=== PATIENT | female | born 1995 | race Asian ===

== ENCOUNTER 2017-05-02 01:55 | Inpatient (IN) | payer OTHER ==
[2017-05-02 02:55] VITALS: BMI 37.8
[2017-05-02 03:11] LABS: BASOPHIL 0.9 % (0-2.0); MCH 26.9 pg (25.7-33.7); MCHC 33.4 g/dl (32.0-36.0); MEAN CELL VOLUME 80.6 fl (80-96); NEUTROPHILS 70.6 % (42.8-82.8); PLATELET COUNT 227 K/MM3 (134-434); RDW 14.4 % (11.6-15.6); WHITE BLOOD COUNT 12.5 K/mm3 (4.0-10.0)
[2017-05-02 03:30] LABS: INR 1.04 (0.82-1.09); PROTHROMBIN TIME (PATIENT) 11.4 SEC (9.98-11.88)
[2017-05-02 03:33] LABS: ANION GAP 10 (8-16); CALCIUM 8.8 mg/dL (8.5-10.1); CO2 25 mmol/L (21-32); CREATININE 0.4 mg/dL (0.55-1.02); GLUCOSE,RANDOM 87 mg/dL (74-106)
[2017-05-02 04:05] LABS: HIV 1 & 2 AB NEGATIVE; HIV 1 AGp24 NEGATIVE
[2017-05-02] MEDS ORDERED: DEXTROSE 5%-LACTATED RINGERS 1,000 ML IV SCH (06:30)
--- NOTE | 2017-05-02 06:33 | HP ---
Past Medical History - Admission Chief Complaint: Postdates History of Present Illness: 22 yo @ 40.3 weeks gestation, admitted for IOL due to Post term . EDC 04/29/2017 She c/o mild contractions pain but no vaginal bleeding nor ROM. History Source: Patient Limitations to Obtaining History: No Limitations - Past Medical History ...: 3 ...Para: 2 ...Term: 2 ...: 0 ...Spon : 0 ...Induced : 0 ...Multiple Gestation: 0 ...LMP: 07/23/16 ... Weeks Gestation by Dates: 40.3 ...EDC by Dates: 04/29/17 ...EDC by Sono: 04/29/17 - Past Surgical History Past Surgical History: Yes: None Hx Myomectomy: No Hx Transabdominal Cerclage: No - Smoking History Smoking history: Never smoked Have you smoked in the past 12 months: No - Alcohol/Substance Use Hx Alcohol Use: No History of Substance Use: reports: None - Social History Usual Living Arrangement: Yes: With Spouse History of Recent Travel: No Home Medications - Allergies Allergies/Adverse Reactions: Allergies Allergy/AdvReac Type Severity Reaction Status Date / Time No Known Drug Allergies Allergy Verified 05/28/13 05:13 - Home Medications Home Medications: Ambulatory Orders Ibuprofen [Motrin -] 600 mg PO TID PRN #60 tablet 05/29/13 Acetaminophen [Tylenol .Regular Strength -] 650 mg PO Q4H PRN #0 tablet Iron 1 tab PO DAILY 05/02/17 Vitamins (Sjr) - 1 tab PO DAILY 05/02/17 Family Disease History - Family Disease History Family History: Unremarkable Review of Systems - Review of Systems Constitutional: reports: No Symptoms HENT: reports: No Symptoms Neck: reports: No Symptoms Cardiovascular: reports: No Symptoms Respiratory: reports: No Symptoms Gastrointestinal: reports: No Symptoms Genitourinary: reports: No Symptoms Breasts: reports: No Symptoms Reported Integumentary: reports: No Symptoms Neurological: reports: No Symptoms Endocrine: reports: No Symptoms Hematology/Lymphatic: reports: No Symptoms Psychiatric: reports: No Symptoms Pain Intensity: 4 Physical Exam - Maternity Vital Signs: Vital Signs Temperature 98.8 F 05/02/17 01:55 Pulse Rate 99 H 05/02/17 01:55 Respiratory Rate 18 05/02/17 01:55 Blood Pressure 104/67 05/02/17 01:55 O2 Sat by Pulse Oximetry (%) Constitutional: Yes: Well Nourished Eyes: Yes: Conjunctiva Clear HENT: Yes: WNL Cardiovascular: Yes: Regular Rate and Rhythm Lungs: Clear to auscultation - Abdominal Exam/OB Number of Fetuses: Single Presentation: Vertex - Vaginal Exam/OB Dilatation (cm): 5 Effacement (%): 90 Amniotic Membrane Status: Intact Station: -2 - Physical Exam Musculoskeletal: Yes: WNL ...Motor Strength: WNL Psychiatric: Yes: Alert, Oriented - Labs Lab Results: CBC, BMP 05/02/17 02:45 05/02/17 02:45 Problem List - Problems (1) Post term Code(s): O48.0 - POST-TERM Assessment/Plan Post term Early labor Admit to L&D Anticipate
[2017-05-02] MEDS ORDERED: BUTORPHANOL TARTRATE 1 MG/ML VIAL IVPUSH ONE (09:30)
[2017-05-02] MEDS: PROMETHAZINE HCL 25 MG/1 ML VIAL IVPUSH SCH (09:40)
[2017-05-02] MEDS ORDERED: BENZOCAINE 20% 57 GM BOTTLE TP PRN (11:13)
[2017-05-02] MEDS ORDERED: WITCH HAZEL 50% (TUCKS) 40 PAD/JAR PAD TP PRN (11:13)
[2017-05-02] MEDS ORDERED: BENZOCAINE 28 GM HEMORRHOIDAL OINTMENT TP PRN (11:13)
[2017-05-02] MEDS ORDERED: METHYLERGONOVINE MALEATE 0.2 MG/1 ML AMP IM PRN (11:13)
[2017-05-02] MEDS ORDERED: BISACODYL 10 MG SUPP.RECT RC PRN (11:13)
[2017-05-02] MEDS ORDERED: D5W-LR W/ 20 UNITS OXYTOCIN 1,000 ML IV SCH (11:15)
--- NOTE | 2017-05-02 11:16 | PN ---
Delivery - Delivery Vaginal Delivery: Spontaneous Type of Anesthesia: Local Episiotomy/Laceration: None EBL (cc): 250 Delivery, Single - Feeding Plan Initial Plan: Elected not to breastfeed exclusively throughout hospitalization Remarks - Remarks Remarks: Normal spontaneous vaginal delivery of a live girl over intact perineum. Nose / Oropharynx suctioned @ perineum. Cord clamped and cut. Placenta expelled spontaneously intact. Mother in stable condition
[2017-05-02] MEDS: FERROUS SO4 325 MG TABLET (FP) PO SCH ×2 (13:23→17:53)
[2017-05-02] MEDS: ACETAMINOPHEN 325 MG TABLET (FP) PO PRN ×2 (13:23→17:53)
[2017-05-02] MEDS: IBUPROFEN 600 MG TABLET (FP) PO PRN ×2 (13:24→17:53)
[2017-05-03 08:50] LABS: BASOPHIL 0.6 % (0-2.0); MCHC 32.1 g/dl (32.0-36.0); MEAN CELL VOLUME 81.1 fl (80-96); MEAN PLT VOLUME 8.3 fl (7.5-11.1); NEUTROPHILS 71.7 % (42.8-82.8); PLATELET COUNT 206 K/MM3 (134-434); RDW 14.6 % (11.6-15.6); WHITE BLOOD COUNT 12.1 K/mm3 (4.0-10.0)
[2017-05-03] MEDS: PRENATAL VITAMINS W/ FOLIC ACID TABLET (FP) PO SCH (09:53)
[2017-05-03] MEDS: FERROUS SO4 325 MG TABLET (FP) PO SCH ×3 (09:53→19:37)
--- NOTE | 2017-05-03 12:27 | PN ---
Post Progress Note - Subjective Subjective: 22 yo Para 3 status post vaginal delivery, seen and evaluated, doing well. No complaints. Post Day: 1 Type of Delivery: Vital Signs: Vital Signs Temperature 97.9 F 05/03/17 09:00 Pulse Rate 91 H 05/03/17 09:00 Respiratory Rate 20 05/03/17 09:00 Blood Pressure 93/50 05/03/17 09:00 O2 Sat by Pulse Oximetry (%) 100 05/02/17 12:43 Breast Exam: Yes: Soft Uterus: Yes: Fundus Firm Abdomen/GI: Yes: Abdomen soft, Tolerating PO Lochia: Yes: Rubra Lochia, amount: Moderate Extremities: Yes: Calves non-tender Perineum: Yes: Intact Activity: Ambulating - Labs Labs: CBC WBC 12.1 K/mm3 (4.0-10.0) H 05/03/17 07:30 RBC 3.92 M/mm3 (3.60-5.2) 05/03/17 07:30 Hgb 10.2 GM/dL (10.7-15.3) L 05/03/17 07:30 Hct 31.8 % (32.4-45.2) L 05/03/17 07:30 MCV 81.1 fl (80-96) 05/03/17 07:30 MCH 26.0 pg (25.7-33.7) 05/03/17 07:30 MCHC 32.1 g/dl (32.0-36.0) 05/03/17 07:30 RDW 14.6 % (11.6-15.6) 05/03/17 07:30 Plt Count 206 K/MM3 (134-434) 05/03/17 07:30 MPV 8.3 fl (7.5-11.1) 05/03/17 07:30 Neutrophils % 71.7 % (42.8-82.8) 05/03/17 07:30 Lymphocytes % 21.1 % (8-40) 05/03/17 07:30 Monocytes % 4.6 % (3.8-10.2) 05/03/17 07:30 Eosinophils % 2.0 % (0-4.5) 05/03/17 07:30 Basophils % 0.6 % (0-2.0) 05/03/17 07:30 Problem List - Problems (1) Post term Code(s): O48.0 - POST-TERM Assessment/Plan Status post normal vaginal delivery Stable Continue routine care
[2017-05-03] MEDS: IBUPROFEN 600 MG TABLET (FP) PO PRN (19:40)
[2017-05-03] MEDS: ACETAMINOPHEN 325 MG TABLET (FP) PO PRN (19:40)
[2017-05-03] MEDS: PROMETHAZINE HCL 25 MG/1 ML VIAL IVPUSH SCH (19:56)
[2017-05-03] MEDS ORDERED: SENNOSIDES/DOCUSATE COMBO (SENNA PLUS) TABLET (UD) PO PRN (22:00)
[2017-05-04] MEDS: IBUPROFEN 600 MG TABLET (FP) PO PRN (07:59)
[2017-05-04] MEDS: ACETAMINOPHEN 325 MG TABLET (FP) PO PRN (07:59)
[2017-05-04] MEDS: FERROUS SO4 325 MG TABLET (FP) PO SCH ×2 (07:59→11:42)
[2017-05-04 08:16] VITALS: BP 99/57; PULSE 95; TEMP 98.2
[2017-05-04] MEDS: PRENATAL VITAMINS W/ FOLIC ACID TABLET (FP) PO SCH (09:01)
--- NOTE | 2017-05-04 10:17 | DS ---
Physical Exam-CUSTOMER ACCOUNT EXECUTIVE Vital Signs: Vital Signs Temperature 98.2 F 05/04/17 08:14 Pulse Rate 95 H 05/04/17 08:14 Respiratory Rate 20 05/04/17 08:14 Blood Pressure 99/57 05/04/17 08:14 O2 Sat by Pulse Oximetry (%) 100 05/02/17 12:43 Constitutional: Yes: Well Nourished Eyes: Yes: Conjunctiva Clear HENT: Yes: Atraumatic Neck: Yes: Supple Cardiovascular: Yes: Regular Rate and Rhythm Respiratory: Yes: Regular Gastrointestinal: Yes: Normal Bowel Sounds ...Rectal Exam: Yes: WNL Renal/: Yes: WNL Pelvis: Yes: WNL External Genitalia: Yes: Normal Vaginal Exam: Yes: Normal Cervix: Yes: Normal Uterus: Yes: Firm ....Post : Yes: Uterus firm, Moderate lochia serosa Breast(s): Yes: WNL Musculoskeletal: Yes: WNL Extremities: Yes: WNL Integumentary: Yes: WNL Neurological: Yes: Alert, Oriented ...Motor Strength: WNL Psychiatric: Yes: Alert, Oriented Labs: CBC, BMP 05/03/17 07:30 05/02/17 02:45 Delivery - Delivery Vaginal Delivery: Spontaneous Type of Anesthesia: None Episiotomy/Laceration: None EBL (cc): 250 Delivery, Single - Stages of Labor Date 1st Stage Initiatied: 05/02/17 Time 1st Stage Initiated: 00:00 Date 2nd Stage Initiated: 05/02/17 Time 2nd Stage Initiated: 11:00 Date of Delivery: 05/02/17 Time of Delivery: 11:05 Time Placenta Delivered: 11:06 - 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 Gender: Female Weight: 6 lb 13 oz Position: Left, OA Total Hours ROM (Hrs/Mins): 1/25 - 1 Minute Total Score: 9 5 Minutes Total Score: 9 - Feeding Plan Initial Plan: Elected not to breastfeed exclusively throughout hospitalization Discharge Summary Reason For Visit: LABOR Current Active Problems Post term (Acute) Status post normal vaginal delivery (Acute) Procedures: Principal: Normal spontaneous vaginal delivery Hospital Course: Routine care Condition: Good - Instructions Diet, Activity, Other Instructions: Regular diet No douching, no sexual intercourse x 6 weeks F/U with in 6 weeks call for appointment. Referrals: Cassidy Quezada MD [Staff Physician] - Disposition: HOME - Home Medications Comprehensive Discharge Medication List: Ambulatory Orders Ibuprofen [Motrin -] 600 mg PO TID PRN #60 tablet 05/29/13 Acetaminophen [Tylenol .Regular Strength -] 650 mg PO Q4H PRN #0 tablet Iron 1 tab PO DAILY 05/02/17 Vitamins (Sjr) - 1 tab PO DAILY 05/02/17
== END 2017-05-04 12:40 | disposition home or self-care (01) | DRG 560 ==
LOC: JLDR 01:55 → J3W 13:00
PROVIDERS: ADMIT Obstetrics & Gynecology; ATTEND Obstetrics & Gynecology
PROC: 10E0XZZ Delivery of Products of Conception, External Approach (ICD-10-PCS; principal; 2017-05-02)
PROC: 0W8NXZZ Division of Female Perineum, External Approach (ICD-10-PCS; 2017-05-02)
PROC: 4A1HXCZ Monitoring of Products of Conception, Cardiac Rate, External Approach (ICD-10-PCS; 2017-05-02)
PROC: 3E0P7GC Introduction of Other Therapeutic Substance into Female Reproductive, Via Natural or Artificial Opening (ICD-10-PCS; 2017-05-02)
DX: O48.0 Post-term pregnancy (principal); Z3A.40 40 weeks gestation of pregnancy; Z37.0 Single live birth
CPT/HCPCS: 36415; 59409; 80048; 85025; 85610; 85730; 86593; 86850; 86900; 86901; 87389

== ENCOUNTER 2019-06-28 09:05 | Emergency (ER) | payer OTHER ==
[2019-06-28 09:19] VITALS: BMI 33.5
[2019-06-28 10:21] LABS: BASO % 0.5 % (0-2.0); EOS % 0.8 % (0-4.5); HEMATOCRIT 35.6 % (32.4-45.2); HEMOGLOBIN 11.6 GM/dL (10.7-15.3); LYMPH % 23.2 % (8-40); MCH 25.7 pg (25.7-33.7); MCHC 32.7 g/dl (32.0-36.0); MEAN CELL VOLUME 78.8 fl (80-96); MEAN PLT VOLUME 8.4 fl (7.5-11.1); MONO % 5.6 % (3.8-10.2); NEUT % 69.9 % (42.8-82.8); PLATELET COUNT 260 K/MM3 (134-434); RBC 4.52 M/mm3 (3.60-5.2); RDW 15.5 % (11.6-15.6); WHITE BLOOD COUNT 8.1 K/mm3 (4.0-10.0)
[2019-06-28 10:23] LABS: URINE APPEARANCE CLEAR; URINE BILIRUBIN NEGATIVE (NEGATIVE); URINE COLOR YELLOW; URINE GLUCOSE (UA) NEGATIVE (NEGATIVE); URINE KETONE 2+ (NEGATIVE); URINE LEUK ESTERASE NEGATIVE (NEGATIVE); URINE NITRITE NEGATIVE (NEGATIVE); URINE PROTEIN NEGATIVE (NEGATIVE); URINE UROBILINOGEN 0.2 mg/dL (0.2-1.0)
--- NOTE | 2019-06-28 10:43 | PDOC ---
History of Present Illness - General Chief Complaint: Pain, Acute Stated Complaint: 9wks preg/cough Time Seen by Provider: 06/28/19 09:39 History Source: Patient Exam Limitations: Clinical Condition - History of Present Illness Initial Comments: 06/28/19 10:38 Patient LMP April 17 presented with complaint of 3 episodes of blood- tinged vomit since yesterday. Patient reported intermittent cough. Patient report doing home test a month ago and found to be but has not followed up with OB. Denies vaginal bleeding, urinary frequency, burning with urination, fever, chills, shortness of breath, dizziness. He denies denies recent travel or sick contact. Patient reported history of uncomplicated 3 vaginal deliveries. Patient did not take anything for symptoms. Denies active bleeding or discharge Is this a multiple visit Asthma Patient?: No Timing/Duration: other (2 days) Past History - Past Medical History Allergies/Adverse Reactions: Allergies Allergy/AdvReac Type Severity Reaction Status Date / Time No Known Drug Allergies Allergy Verified 05/28/13 05:13 Home Medications: Ambulatory Orders Ibuprofen [Motrin -] 600 mg PO TID PRN #60 tablet 05/29/13 Acetaminophen [Tylenol .Regular Strength -] 650 mg PO Q4H PRN #0 tablet Iron 1 tab PO DAILY 05/02/17 Vitamins (Sjr) - 1 tab PO DAILY 05/02/17 Mag Hydrox/Aluminum Hyd/Simeth [Maalox Advanced Suspension] 30 ml PO Q8H PRN # 120 ml 06/28/19 Ondansetron [Zofran *Odt*] 4 mg SL Q8H PRN #12 od.tablet 06/28/19 Pantoprazole Sodium [Protonix] 40 mg PO DAILY #7 tablet. 06/28/19 Asthma: No Cancer: No Cardiac Disorders: No COPD: No Diabetes: No HTN: No Seizures: No Thyroid Disease: No - Reproductive History Is Patient Now?: Yes (#): 4 Para: 3 - Immunization History Immunization Up to Date: No - Psycho Social/Smoking Cessation Hx Smoking History: Never smoked Have you smoked in the past 12 months: No Information on smoking cessation initiated: No Hx Alcohol Use: No Drug/Substance Use Hx: No Hx Substance Use Treatment: No Review of Systems - Review of Systems Able to Perform ROS?: Yes Is the patient limited [place]an proficient: No Constitutional: No: Chills, Fever, Malaise, Weakness HEENTM: No: Symptoms Reported, See HPI, Eye Pain, Blurred Vision, Tearing, Recent change in vision, Double Vision, Cataracts, Ear Pain, Ocular Prothesis, Ear Discharge, Nose Pain, Nose Congestion, Tinnitus, Nose Bleeding, Hearing Loss , Throat Pain, Throat Swelling, Mouth Pain, Dental Problems, Difficulty Swallowing, Mouth Swelling, Other Respiratory: Yes: Symptoms reported, See HPI, Cough (intermittent cough). No: Orthopnea, Shortness of Breath, SOB with Exertion, SOB at Rest, Stridor, Wheezing, Productive cough, Hemoptysis, Other Cardiac (ROS): No: Symptoms Reported, See HPI, Chest Pain, Edema, Irregular Heart Rate, Lightheadedness, Palpitations, Syncope, Chest Tightness, Other ABD/GI: Yes: Symptoms Reported, See HPI, Nausea, Vomiting (3 episodes of vomiting). No: Abdominal Distended, Abd. Pain w/ defecation, Blood Streaked Bowels, Constipated, Diarrhea, Difficulty Swallowing, Poor Appetite, Poor Fluid Intake, Rectal Bleeding, Indigestion, Abdominal cramping, Tarry Stools, Other : No: Symptoms Reported, Burning, Dysuria, Discharge, Frequency, Urgency, Other (vaginal bleeding) Musculoskeletal: No: Symptoms Reported Integumentary: No: Symptoms Reported Neurological: No: Symptoms reported, Headache, Weakness, Dizziness All Other Systems: Reviewed and Negative *Physical Exam - Vital Signs Last Vital Signs Temp Pulse Resp BP Pulse Ox 98.3 F 72 18 133/58 L 99 06/28/19 09:16 06/28/19 09:16 06/28/19 09:16 06/28/19 09:16 06/28/19 09:16 - Physical Exam Comments: 06/28/19 10:43 GENERAL: Well developed, well nourished. Awake and alert. No acute distress. HEENT: Normocephalic, atraumatic. PERRLA, EOMI. No conjunctival pallor. Sclera are non-icteric. Moist mucous membranes. Oropharynx is clear. NECK: Supple. Full ROM. CARDIOVASCULAR: Regular rate and rhythm. No murmurs, rubs, or gallops. Distal pulses are 2+ and symmetric. PULMONARY: No evidence of respiratory distress. Lungs clear to auscultation bilaterally. No wheezing, rales or rhonchi. ABDOMINAL: Soft. Mild epigastric tenderness. Non-distended. No rebound or guarding. No organomegaly. Normoactive bowel sounds. MUSCULOSKELETAL Normal range of motion at all joints. SKIN: Warm and dry. Normal capillary refill. No rashes. No jaundice. NEUROLOGICAL: Alert, awake, appropriate. Gait is normal without ataxia. PSYCHIATRIC: Cooperative. Good eye contact. Appropriate mood General Appearance: Yes: Nourished, Appropriately Dressed. No: Apparent Distress ED Treatment Course - LABORATORY CBC & Chemistry Diagram: 06/28/19 10:00 06/28/19 10:00 - ADDITIONAL ORDERS Additional order review: Laboratory Results 06/28/19 10:00 Urine Color Yellow Urine Appearance Clear Urine pH 7.0 Ur Specific [place] 1.012 Urine Protein Negative Urine Glucose (UA) Negative Urine Ketones 2+ H Urine Blood Negative Urine Nitrite Negative Urine Bilirubin Negative Urine Urobilinogen 0.2 Ur Leukocyte Esterase Negative 06/28/19 10:00 RBC 4.52 MCV 78.8 L MCHC 32.7 RDW 15.5 MPV 8.4 Neutrophils % 69.9 Lymphocytes % 23.2 Monocytes % 5.6 Eosinophils % 0.8 Basophils % 0.5 - RADIOLOGY Radiology Studies Ordered: Category Date Time Status ABDOMEN US [US] Stat Ultrasound 06/28/19 09:57 Ordered Medical Decision Making - Medical Decision Making 06/28/19 10:39 Patient LMP April 17 presented with complaint of 3 episodes of blood- tinged vomit since yesterday. Patient reported intermittent cough. Patient report doing home test a month ago and found to be but has not followed up with OB. Denies vaginal bleeding, urinary frequency, burning with urination, fever, chills, shortness of breath, dizziness. He denies denies recent travel or sick contact. Patient reported history of uncomplicated 3 vaginal deliveries. Patient did not take anything for symptoms.Denies vaginal bleeding or discharge Exam significant for mild epigastric tenderness without guarding or rebound. Normal cardiac lung exams. Oropharynx normal. Symptoms likely gastritis versus vomiting from with [place] causing blood-tinged vomit. CBC, beta-hCG and chemistry lab ordered. Abdominal ultrasound ordered to rule out cholecystitis. Treat based on imaging lab results 06/28/19 12:38 CBC and chemistry lab unremarkable. Beta-hCG is 113,000. Abdominal ultrasound unremarkable. Bedside ultrasound shows IUP. Patient symptoms likely gastritis and stable for discharge on Protonix and Maalox with Zofran for nausea vomiting with OB joint follow-up. Patient is symptomatic and stable for discharge Discharge - Discharge Information Problems reviewed: Yes Clinical Impression/Diagnosis: Abdominal pain during intrauterine , Hematemesis with nausea Nausea & vomiting Qualifiers: Vomiting type: bilious vomiting Qualified Code(s): R11.14 - Bilious vomiting Gastritis Qualifiers: Gastritis type: other gastritis Chronicity: acute Gastritis bleeding: without bleeding Qualified Code(s): K29.00 - Acute gastritis without bleeding Condition: Stable Disposition: HOME - Admission No - Additional Discharge Information Prescriptions: Mag Hydrox/Aluminum Hyd/Simeth [Maalox Advanced Suspension] 30 ml PO Q8H PRN # 120 ml PRN Reason: abdominal discomfort Ondansetron [Zofran *Odt*] 4 mg SL Q8H PRN #12 od.tablet PRN Reason: VOMITING Pantoprazole Sodium [Protonix] 40 mg PO DAILY #7 tablet.dr - Follow up/Referral Referrals: Jany Clark MD [Staff Physician] - - Patient Discharge Instructions Patient Printed Discharge Instructions: DI for Gastritis Additional Instructions: Your lab are normal. Your abdominal ultrasound is normal. Your symptoms is likely gastritis . Take prescribed medications as prescribed. Refrain from high acid foods. Follow-up with your OB - Post Discharge Activity
[2019-06-28 10:58] LABS: ALBUMIN 3.5 g/dl (3.4-5.0); BILIRUBIN,TOTAL 0.8 mg/dL (0.2-1); CALCIUM 9.1 mg/dL (8.5-10.1); CREATININE 0.4 mg/dL (0.55-1.3); POTASSIUM 3.5 mmol/L (3.5-5.1)
[2019-06-28] MEDS ORDERED: MAG HYDROX/AL HYDROX/SIMETH 30 ML UNIT-DOSE CUP PO ONE (12:03)
[2019-06-28] MEDS ORDERED: PANTOPRAZOLE 40 MG TABLET (FP) PO ONE (12:03)
[2019-06-28] MEDS ORDERED: MAG HYDROX/AL HYDROX/SIMETH 30 ML UNIT-DOSE CUP ONE (12:31)
[2019-06-28] MEDS ORDERED: PANTOPRAZOLE 40 MG TABLET (FP) ONE (12:32)
[2019-06-28 13:20] VITALS: BP 102/64; PULSE 71; TEMP 97.9
== END 2019-06-28 13:20 | disposition home or self-care (01) ==
LOC: JER 09:05
PROC: BY49ZZZ Ultrasonography of First Trimester, Single Fetus (ICD-10-PCS; principal; 2019-06-28)
DX: O26.891 Other specified pregnancy related conditions, first trimester (principal); K29.00 Acute gastritis without bleeding; R11.14 Bilious vomiting; Z3A.09 9 weeks gestation of pregnancy
CPT/HCPCS: 36415; 76700-TC; 80053; 81003; 83690; 84702; 85025; 87086; 99283-25